=== PATIENT | female | born 1975 | race Caucasian/White ===

== ENCOUNTER → 2023-07-11 12:25 | Outpatient (REF) | payer OTHER, SELFPAY | LOC: HWRAD 12:25 | PROVIDERS: ATTENDING PHYSICIAN Nurse Practitioner | DX: R16.0 Hepatomegaly, not elsewhere classified (principal) | CPT/HCPCS: 74170; Q9967 ==

== ENCOUNTER → 2024-01-26 08:33 | Outpatient (REF) | payer BC, SELFPAY | LOC: HWRAD 08:33 | PROVIDERS: ATTENDING PHYSICIAN Nurse Practitioner; FAMILY PHYSICIAN Nurse Practitioner Adult Health | DX: K76.9 Liver disease, unspecified (principal) | CPT/HCPCS: 74170; Q9967 ==